=== PATIENT | female | born 1980 | race Hispanic/Latino ===

== ENCOUNTER 2022-12-23 01:10 | Emergency (ER) | payer OTHER, MEDICAID ==
[~2022-12-23] VITALS: Ht 170.2 cm; Wt 77.1 kg
[2022-12-23 01:54] LABS: BASOPHILS 0.8 % (0-2); EOSINOPHILS 1.8 % (0-6); HEMATOCRIT 38.6 % (35.0-50.0); HEMOGLOBIN 12.9 g/dL (12.0-18.0); LYMPHOCYTES 27.9 % (24-44); MCH 31.1 (27-36); MCHC 33.5 g/dl (30-36); MCV 92.8 fl (81-99); MONOCYTES 7.8 % (0-12); NEUTROPHILS 61.7 % (39-80); PLATELET COUNT 240 K/uL (140-440); RBC 4.16 M/ul (4.3-5.7); RDW 12.2 (10.5-15.0)
[2022-12-23 02:22] LABS: ALBUMIN 3.8 g/dL (3.4-5.0); ALBUMIN/GLOBULIN RATIO 1.06 (1.1-2.4); ALCOHOL, MEDICAL <3 ng/dL (<3); ALKALINE PHOSPHATASE 93 U/L (46-116); ALT (SGPT) 71 U/L (14-59); ANION GAP 10.8 (7-21); AST (SGOT) 70 U/L (15-37); BILIRUBIN, TOTAL 0.4 ng/dL (0.2-1.0); BUN/CREATININE RATIO 19.79 (6.0-28.6); CARBON DIOXIDE 29 mmol/L (21-32); CHLORIDE 103 mmol/L (98-107); CREATININE, SERUM 0.96 mg/dL (0.55-1.02); GLOMERULAR FILTRATION RATE,EST 75 mL/min (>60); POTASSIUM 3.8 mmol/L (3.5-5.1); PROTEIN, TOTAL 7.4 g/dL (6.4-8.2); UREA NITROGEN 19 mg/dL (7-18)
[2022-12-23 02:29] LABS: ABO B; ANTIBODY SCREEN NEGATIVE; RH POSITIVE
[2022-12-23 02:30] LABS: AMPHETAMINES, URINE NEGATIVE (NEGATIVE); BARBITURATES, URINE NEGATIVE (NEGATIVE); BENZODIAZEPINE, URINE NEGATIVE (NEGATIVE); BUPRENORPHINE, URINE NEGATIVE (NEGATIVE); CANNABINOID, URINE NEGATIVE (NEGATIVE); COCAINE, URINE NEGATIVE (NEGATIVE); ECSTASY, URINE NEGATIVE (NEGATIVE); FENTANYL, URINE NEGATIVE (NEGATIVE); METHADONE, URINE NEGATIVE (NEGATIVE); OPIATES, URINE NEGATIVE (NEGATIVE); OXYCODONE, URINE NEGATIVE (NEGATIVE); PHENCYCLIDINE, URINE NEGATIVE (NEGATIVE)
[2022-12-23] MEDS ORDERED: TRAMADOL HCL50 MG PO (04:21)
[2022-12-23 04:55] VITALS: BP 106/77
== END 2022-12-23 04:57 | disposition home or self-care (01) ==
LOC: ED 01:10 → EDBD 01:11 → ED 04:57
PROVIDERS: Family Medicine
DX: S83.91XA Sprain of unspecified site of right knee, initial encounter (principal); S20.212A Contusion of left front wall of thorax, initial encounter; V89.2XXA Person injured in unspecified motor-vehicle accident, traffic, initial encounter
CPT/HCPCS: 36415; 71260; 72125; 73560; 80053; 80307; 84702; 85025; 86850; 86900; 86901; A9270; G0480; Q9967